=== PATIENT | male | born 1980 | race Caucasian/White ===

== ENCOUNTER → 2017-10-28 | Outpatient (CLI) | payer BC ==
[2017-10-28 10:24] LABS: BUN 11 mg/dl (7-24); CHLORIDE 104 mmol/L (98-107); POTASSIUM 3.7 mmol/L (3.5-5.1); SODIUM 141 mmol/L (136-145)
[2017-10-28 10:29] LABS: ALKALINE PHOSPHATASE 85 U/L (45-117); PHOSPHOROUS 3.1 mg/dL (2.5-4.9); SGOT/AST 31 IU/L (3-35); SGPT/ALT 35 U/L (12-78); TOTAL PROTEIN 7.5 gm/dL (6.4-8.2); URIC ACID 5.8 mg/dL (3.5-7.2)
[2017-10-28 11:20] LABS: PTH INTACT 78.1 pg/mL (14.0-72.0); VITAMIN D, 25-HYDROXY 25.1 ng/mL (30-100)
== END | disposition home or self-care (01) ==
LOC: US 08:30 → LAB 08:34
PROVIDERS: Internal Medicine Nephrology
DX: I12.9 Hypertensive chronic kidney disease with stage 1 through stage 4 chronic kidney disease, or unspecified chronic kidney disease (principal); N18.2 Chronic kidney disease, stage 2 (mild)

== ENCOUNTER → 2017-10-30 | Outpatient (CLI) | payer BC ==
[2017-10-30 12:22] LABS: URINE CREATININE RANDOM 73.9 mg/dL
[2017-11-02 14:04] LABS: CORTISOL, FREE URINE 26 ug/L (Undefined); CORTISOL, FREE, UG/24HR, URINE 26 ug/24 hr (0-50)
== END | disposition home or self-care (01) ==
LOC: LAB 11:33
PROVIDERS: Internal Medicine Nephrology
DX: I12.9 Hypertensive chronic kidney disease with stage 1 through stage 4 chronic kidney disease, or unspecified chronic kidney disease (principal); N18.2 Chronic kidney disease, stage 2 (mild)

== ENCOUNTER → 2017-12-05 | Outpatient (CLI) | payer BC ==
[2017-12-09 20:09] LABS: NORMETANEPHRINE URINE 151 ug/L (Undefined); URINE METANEPHRINE 78 ug/L (Undefined); URINE METANEPHRINE, 24 HR 94 ug/24 hr (45-290); URINE NORMETANEPHRINE 24HR 181 ug/24 hr (82-500)
[2017-12-10 10:08] LABS: DOPAMINE, URINE 121 ug/L (Undefined); EPINEPHRINE, URINE 24 HR 5 ug/24 hr (0-20)
== END | disposition home or self-care (01) ==
LOC: LAB 16:49
PROVIDERS: Internal Medicine Nephrology
DX: I12.9 Hypertensive chronic kidney disease with stage 1 through stage 4 chronic kidney disease, or unspecified chronic kidney disease (principal); N18.2 Chronic kidney disease, stage 2 (mild)

== ENCOUNTER → 2018-05-19 | Outpatient (CLI) | payer BC ==
[2018-05-19 12:55] LABS: BILIRUBIN NEGATIVE (NEGATIVE); BLOOD NEGATIVE (NEGATIVE); CLARITY SL CLOUDY (CLEAR); COLOR YELLOW (YELLOW); GLUCOSE NEGATIVE (NEGATIVE); KETONE NEGATIVE (NEGATIVE); LEUKO ESTERASE NEGATIVE (NEGATIVE); NITRITE NEGATIVE (NEGATIVE); PH 7.5 (5.0-9.0); SPECIFIC GRAVITY 1.015 (1.005-1.030); UROBILINOGEN 0.2 E.U./dl (0.2-1.0)
[2018-05-19 13:08] LABS: EPITHELIAL CELLS 0-2; MUCOUS 2+
[2018-05-19 13:13] LABS: BASO # 0.1 10*3/uL (0.0-0.1); BASO % 1.2 % (0.0-1.0); EOS # 0.4 10*3/uL (0.0-0.4); EOS % 6.9 % (1.0-4.0); HEMATOCRIT 43.9 % (42.0-52.0); HEMOGLOBIN 14.8 g/dl (14.0-18.0); LYMPH # 1.4 10*3/uL (1.3-4.4); LYMPH % 27.4 % (27.0-41.0); MEAN CELL VOLUME 92.8 fl (80.0-94.0); MEAN CORPUSCULAR HGB 31.3 pg (27.0-31.0); MEAN CORPUSCULAR HGB CONC 33.7 g/dl (33.0-37.0); MEAN PLATELET VOLUME 10.4 fl (9.6-12.3); MONO # 0.5 10*3/uL (0.1-1.0); MONO % 9.7 % (3.0-9.0); NEUT # 2.8 10*3/uL (2.3-7.9); NEUT % 54.6 % (47.0-73.0); PLATELET COUNT AUTOMATED 224 10*3/uL (130-400); RED BLOOD COUNT 4.73 10*6/uL (4.50-5.90); RED CELL DISTRI WIDTH 11.3 % (0-14.5); WHITE BLOOD COUNT 5.2 10*3/uL (4.8-10.8)
[2018-05-19 13:29] LABS: ALBUMIN 3.9 gm/dl (3.1-4.5); ALKALINE PHOSPHATASE 77 U/L (45-117); BUN 14 mg/dl (7-24); CHLORIDE 101 mmol/L (98-107); CHOLESTEROL 167 mg/dL (<200); CREATININE 1.04 mg/dL (0.70-1.30); HDL CHOLESTEROL 50 mg/dl (40-60); IRON 156 ug/dL (65-175); LDL CHOLESTEROL 104 mg/dL (9-159); POTASSIUM 3.7 mmol/L (3.5-5.1); SGOT/AST 19 IU/L (3-35); SGPT/ALT 33 U/L (12-78); SODIUM 136 mmol/L (136-145); TOTAL IRON BINDING CAPACITY 316 ug/dl (250-450); TOTAL PROTEIN 7.6 gm/dL (6.4-8.2); TRIGLYCERIDES 66 mg/dl (<150); URIC ACID 5.8 mg/dL (3.5-7.2); VLDL CHOLESTEROL 13 mg/dL (6-40)
[2018-05-19 16:00] LABS: FERRITIN 87.1 ng/mL (22.0-322.0); PTH INTACT 73.6 pg/mL (18.5-88.0); VITAMIN D, 25-HYDROXY 15.3 ng/mL (30-100)
[2018-05-20 10:08] LABS: MICRO ALBUMIN/CRE RATIO 4.3 (0.0-30.0)
== END | disposition home or self-care (01) ==
LOC: LAB 12:14
PROVIDERS: Internal Medicine Nephrology
DX: I12.9 Hypertensive chronic kidney disease with stage 1 through stage 4 chronic kidney disease, or unspecified chronic kidney disease (principal); N18.2 Chronic kidney disease, stage 2 (mild)

== ENCOUNTER → 2020-04-04 | Outpatient (CLI) | payer BC | END | disposition home or self-care (01) | LOC: COVID19 00:35 | PROVIDERS: ATTEND Family Medicine | DX: Z20.828 Contact with and (suspected) exposure to other viral communicable diseases (principal) ==

== ENCOUNTER → 2020-06-13 | Outpatient (CLI) | payer BC | END | disposition home or self-care (01) | LOC: COVID19 08:05 | PROVIDERS: ATTEND Family Medicine | DX: Z20.822 Contact with and (suspected) exposure to COVID-19 (principal) ==

== ENCOUNTER → 2020-08-07 | Outpatient (CLI) | payer BC | END | disposition home or self-care (01) | LOC: COVID19 10:39 | PROVIDERS: ATTEND Family Medicine | DX: Z20.822 Contact with and (suspected) exposure to COVID-19 (principal) ==